=== PATIENT | male | born 1950 | race Caucasian/White ===

== ENCOUNTER 2022-09-23 18:19 | Emergency (ER) | payer OTHER ==
[~2022-09-23] VITALS: Ht 188 cm; Wt 86.2 kg
[~2022-09-23 18:19] MED LIST: BUSP5; CEPH500 PO; DIVA125EC; HYDACE5 PO; LEVSOD25; LOSA25; PARO20; SIMV5; [UNRECOGNIZED DRUG - REMARK]
[2022-09-23 19:12] LABS: BASOPHILS PERCENT AUTO 2 % (0-2); EOSINOPHILS PERCENT AUTO 7 % (0-6); Hematocrit 39.7 % (37.0-53.0); IMMATURE GRAN ABSOLUTE AUTO 0.02 K/mm3 (0.00-0.10); IMMATURE GRAN PERCENT AUTO 0 % (0-1); LYMPHOCYTES ABSOLUTE AUTO 2.41 K/mm3 (0.84-5.20); LYMPHOCYTES PERCENT AUTO 36 % (21-46); MONOCYTES ABSOLUTE AUTO 0.73 K/mm3 (0.16-1.47); MONOCYTES PERCENT AUTO 11 % (4-13); Mean Corpuscular HGB 34.5 pg (26.0-34.0); Mean Corpuscular HGB Conc 32.7 g/dL (31.5-36.5); Mean Corpuscular Volume 105 fL (80-100); Mean Platelet Volume 9.6 fL (9.1-12.4); NEUTROPHILS ABSOLUTE AUTO 2.99 K/mm3 (1.96-9.15); NEUTROPHILS PERCENT AUTO 44 % (41-73); Platelet Count 310 K/mm3 (150-400); RDW Coefficient Variation 15.2 % (11.7-14.2); RDW Standard Deviation 59.4 fL (35.1-46.3); Red Blood Cell Count 3.77 M/mm3 (4.30-5.90); White Blood Cell Count 6.75 K/mm3 (4.00-11.30)
[2022-09-23 19:27] LABS: Albumin/Globulin Ratio 1.2 (0.8-1.8); Bilirubin, Total 0.8 mg/dL (0.1-1.0); Bun/Creatinine Ratio 18.8 (12.0-20.0); Calcium, Blood 8.7 mg/dL (8.5-10.1); Creatinine, Blood 1.01 mg/dL (0.60-1.20); Globulin, Blood 3.3 g/dL (2.2-4.0); Potassium, Blood 4.2 mmol/L (3.5-5.5); Total Protein, Blood 7.3 g/dL (6.4-8.2)
== END 2022-09-23 21:36 | disposition home or self-care (01) ==
LOC: ER 18:19
PROVIDERS: Physician Assistant
DX: J44.9 Chronic obstructive pulmonary disease, unspecified (principal); Z88.5 Allergy status to narcotic agent; Z79.899 Other long term (current) drug therapy
CPT/HCPCS: 36415; 71046; 80053; 83880; 84484; 85025; 85379; 93005; 93010

== ENCOUNTER 2023-11-09 17:02 | Emergency (ER) | payer OTHER ==
[~2023-11-09] VITALS: Ht 190.5 cm; Wt 88.5 kg
[2023-11-09 17:28] LABS: BASOPHILS ABSOLUTE AUTO 0.09 K/mm3 (0.00-0.23); BASOPHILS PERCENT AUTO 1 % (0-2); EOSINOPHILS ABSOLUTE AUTO 0.62 K/mm3 (0.00-0.68); EOSINOPHILS PERCENT AUTO 9 % (0-6); Hematocrit 37.6 % (37.0-53.0); Hemoglobin 12.3 g/dL (13.5-17.5); IMMATURE GRAN ABSOLUTE AUTO 0.03 K/mm3 (0.00-0.10); IMMATURE GRAN PERCENT AUTO 0 % (0-1); LYMPHOCYTES ABSOLUTE AUTO 1.98 K/mm3 (0.84-5.20); LYMPHOCYTES PERCENT AUTO 28 % (21-46); MONOCYTES ABSOLUTE AUTO 0.61 K/mm3 (0.16-1.47); MONOCYTES PERCENT AUTO 9 % (4-13); Mean Corpuscular HGB 36.7 pg (26.0-34.0); Mean Corpuscular HGB Conc 32.7 g/dL (31.5-36.5); Mean Corpuscular Volume 112 fL (80-100); Mean Platelet Volume 9.2 fL (9.1-12.4); NEUTROPHILS ABSOLUTE AUTO 3.66 K/mm3 (1.96-9.15); NEUTROPHILS PERCENT AUTO 52 % (41-73); Platelet Count 311 K/mm3 (150-400); RDW Coefficient Variation 15.4 % (11.7-14.2); Red Blood Cell Count 3.35 M/mm3 (4.30-5.90); White Blood Cell Count 6.99 K/mm3 (4.00-11.30)
[2023-11-09 17:56] LABS: Albumin, Blood 3.8 g/dL (3.4-5.0); Albumin/Globulin Ratio 1.1 (0.8-1.8); Bilirubin, Total 1.4 mg/dL (0.1-1.0); Bun/Creatinine Ratio 18.6 (12.0-20.0); Calcium, Blood 9.1 mg/dL (8.5-10.1); Creatinine, Blood 0.91 mg/dL (0.60-1.20); Globulin, Blood 3.6 g/dL (2.2-4.0); Potassium, Blood 4.6 mmol/L (3.5-5.5); Total Protein, Blood 7.4 g/dL (6.4-8.2)
[2023-11-09] MEDS ORDERED: MethylPREDNISolone Sod Succ 125 MG Vial IV ONE (22:00)
[2023-11-09] MEDS ORDERED: Albuterol 2.5 MG/3 ML VIAL INH SCH (22:00)
[2023-11-09 23:25] LABS: Influenza A, PCR NEGATIVE (NEGATIVE); Influenza B, PCR NEGATIVE (NEGATIVE); Resp Syncytial Virus, PCR NEGATIVE (NEGATIVE); SARS-Cov-2 (COVID-19) PCR, MMC NEGATIVE (NEGATIVE)
[2023-11-09 23:30] VITALS: BP 126/65
[2023-11-09] MEDS ORDERED: AZIT250 PO (23:40)
[2023-11-09] MEDS ORDERED: Azithromycin 250 MG Tab PO ONE (23:40)
[2023-11-09] MEDS ORDERED: ALBU2.5V5 NEB (23:40)
[2023-11-09] MEDS ORDERED: METPRE4DP PO (23:40)
== END 2023-11-10 00:05 | disposition home or self-care (01) ==
LOC: ER 17:02
PROVIDERS: Emergency Medicine
DX: J44.1 Chronic obstructive pulmonary disease with (acute) exacerbation (principal); R09.02 Hypoxemia; Z87.891 Personal history of nicotine dependence; Z88.5 Allergy status to narcotic agent; Z79.899 Other long term (current) drug therapy
CPT/HCPCS: 0241U; 71045; 80053; 84484; 85025; 94644; 94664; A9270; J2930

== ENCOUNTER 2024-02-26 12:24 | Day surgery (SDC) | payer OTHER ==
[~2024-02-26] VITALS: Ht 190.5 cm; Wt 92.4 kg
[~2024-02-26 12:24] MED LIST changes: +ALBU2.5V5 NEB; +AZIT250 PO; +Balanced Salt Epinephrine Irrigation Solution 500 mL IR SCH; +Lidocaine HCl/Pf 1% 5 ML VIAL XX SCH; +METPRE4DP PO; +Moxifloxacin HCL 0.5 MG/0.1 ML 0.4MLSYR RIGHTEYE SCH; +NS 500 ML IV ONE; +PHENYLEPHRINE\\TROPICAMIDE\\TETRACAINE OPHTHALMIC DILATING SOLN RIGHTEYE PRN; +Povidone-Iodine 450 DROP/30 ML Solution RIGHTEYE SCH
[2024-02-26] MEDS ORDERED: DAPS100 (12:57)
[2024-02-26] MEDS ORDERED: VENL25 (13:00)
[2024-02-26] MEDS ORDERED: METO25ER (13:00)
[2024-02-26] MEDS ORDERED: LOPE2C (13:10)
[2024-02-26] MEDS ORDERED: CHLO25B (13:10)
[2024-02-26] MEDS ORDERED: NS 1,000 ML IV ONE (13:20)
[2024-02-26] MEDS ORDERED: Tetracaine HCl 0.5% Opth Soln 15 ml RIGHTEYE ONE (13:35)
[2024-02-26 14:09] VITALS: BP 116/62
--- NOTE | 2024-02-26 14:31 | NUR ---
02/26/24 1431 MYRIAM ANTOINE PT PLACED ON O2 ON PRIOR TO DC. INFORMED PT THAT WE HAD HIS O2 SET AT 5 L
== END 2024-02-26 14:30 | disposition home or self-care (01) ==
LOC: ORSCSDS 12:24
PROVIDERS: Student in an Organized Health Care Education/Training Program
PROC: 08RJ3JZ Replacement of Right Lens with Synthetic Substitute, Percutaneous Approach (ICD-10-PCS; principal; 2024-02-26 13:45)
DX: H25.813 Combined forms of age-related cataract, bilateral (principal); H52.201 Unspecified astigmatism, right eye; I10 Essential (primary) hypertension; J44.9 Chronic obstructive pulmonary disease, unspecified; I25.2 Old myocardial infarction; E11.9 Type 2 diabetes mellitus without complications; E03.9 Hypothyroidism, unspecified; Z99.81 Dependence on supplemental oxygen; D59.10 Autoimmune hemolytic anemia, unspecified; Z79.899 Other long term (current) drug therapy
CPT/HCPCS: 82947; J7040; V2632

== ENCOUNTER 2024-03-05 11:50 | Day surgery (SDC) | payer OTHER ==
[~2024-03-05] VITALS: Ht 190.5 cm; Wt 87.8 kg
[~2024-03-05 11:50] MED LIST changes: +CHLO25B; +DAPS100; +LOPE2C; +METO25ER; +Moxifloxacin HCL 0.5 MG/0.1 ML 0.4MLSYR LEFTEYE SCH; -Moxifloxacin HCL 0.5 MG/0.1 ML 0.4MLSYR RIGHTEYE SCH; +PHENYLEPHRINE\\TROPICAMIDE\\TETRACAINE OPHTHALMIC DILATING SOLN LEFTEYE PRN; -PHENYLEPHRINE\\TROPICAMIDE\\TETRACAINE OPHTHALMIC DILATING SOLN RIGHTEYE PRN; +Povidone-Iodine 450 DROP/30 ML Solution LEFTEYE SCH; -Povidone-Iodine 450 DROP/30 ML Solution RIGHTEYE SCH; +VENL25
--- NOTE | 2024-03-05 12:14 | NUR ---
03/05/24 1214 Maryann Carpenter AT 1208 PLEDGET AT 1209
[2024-03-05] MEDS ORDERED: NS 500 ML IV ONE (12:26)
[2024-03-05] MEDS ORDERED: Tetracaine HCl 0.5% Opth Soln 15 ml LEFTEYE ONE (12:42)
[2024-03-05] MEDS ORDERED: Midazolam HCl 1MG / ML 2ML Vial ONE (12:44)
[2024-03-05] MEDS ORDERED: FentaNYL Citrate 50 MCG/ML 2 ML Injection ONE (12:44)
[2024-03-05 13:13] VITALS: BP 111/88
== END 2024-03-05 13:25 | disposition home or self-care (01) ==
LOC: ORSCSDS 11:50
PROVIDERS: Student in an Organized Health Care Education/Training Program
PROC: 08RK3JZ Replacement of Left Lens with Synthetic Substitute, Percutaneous Approach (ICD-10-PCS; principal; 2024-03-05 13:00)
DX: E11.36 Type 2 diabetes mellitus with diabetic cataract (principal); H25.812 Combined forms of age-related cataract, left eye; H52.202 Unspecified astigmatism, left eye; Z96.1 Presence of intraocular lens; I10 Essential (primary) hypertension; I25.2 Old myocardial infarction; E78.00 Pure hypercholesterolemia, unspecified; I25.10 Atherosclerotic heart disease of native coronary artery without angina pectoris; J44.9 Chronic obstructive pulmonary disease, unspecified; E03.9 Hypothyroidism, unspecified; Z99.81 Dependence on supplemental oxygen; Z79.899 Other long term (current) drug therapy; Z87.891 Personal history of nicotine dependence
CPT/HCPCS: 82947; J2250; J3010; J7040; V2632

== ENCOUNTER 2025-03-07 17:09 | Inpatient (IN) | payer OTHER ==
[~2025-03-07] VITALS: Ht 188 cm; Wt 86.2 kg
[~2025-03-07 17:09] MED LIST changes: -Balanced Salt Epinephrine Irrigation Solution 500 mL IR SCH; -CHLO25B; +CHLO25B PO; -DAPS100; +DAPS100 PO; -LEVSOD25; +LEVSOD25 PO; -Lidocaine HCl/Pf 1% 5 ML VIAL XX SCH; -METO25ER; +METO25ER PO; -Moxifloxacin HCL 0.5 MG/0.1 ML 0.4MLSYR LEFTEYE SCH; -NS 500 ML IV ONE; -PHENYLEPHRINE\\TROPICAMIDE\\TETRACAINE OPHTHALMIC DILATING SOLN LEFTEYE PRN; -Povidone-Iodine 450 DROP/30 ML Solution LEFTEYE SCH; -VENL25; +VENL25 PO
[2025-03-07 17:40] LABS: BASOPHILS ABSOLUTE AUTO 0.04 K/mm3 (0.00-0.23); BASOPHILS PERCENT AUTO 1 % (0-2); EOSINOPHILS ABSOLUTE AUTO 0.02 K/mm3 (0.00-0.68); EOSINOPHILS PERCENT AUTO 0 % (0-6); Hematocrit 31.3 % (37.0-53.0); Hemoglobin 10.6 g/dL (13.5-17.5); IMMATURE GRAN ABSOLUTE AUTO 0.02 K/mm3 (0.00-0.10); IMMATURE GRAN PERCENT AUTO 0 % (0-1); LYMPHOCYTES ABSOLUTE AUTO 2.04 K/mm3 (0.84-5.20); LYMPHOCYTES PERCENT AUTO 26 % (21-46); MONOCYTES ABSOLUTE AUTO 0.77 K/mm3 (0.16-1.47); MONOCYTES PERCENT AUTO 10 % (4-13); Mean Corpuscular HGB Conc 33.9 g/dL (31.5-36.5); Mean Corpuscular Volume 100 fL (80-100); NEUTROPHILS ABSOLUTE AUTO 4.84 K/mm3 (1.96-9.15); NEUTROPHILS PERCENT AUTO 63 % (41-73); NRBC ABSOLUTE 0.00 K/mm3 (0.00-0.02); NRBC Auto 0.0 /100 WBC (0.0-0.2); Platelet Count 311 K/mm3 (150-400); RDW Coefficient Variation 15.0 % (11.7-14.2); RDW Standard Deviation 54.3 fL (35.1-46.3)
[2025-03-07 18:04] LABS: Alanine Aminotransfer (ALT/SGP 27.0 U/L (12-78); Albumin, Blood 4.2 g/dL (3.4-5.0); Albumin/Globulin Ratio 1.4 (0.8-1.8); Anion Gap 12.0 mmol/L (3-11); Aspartate Aminotrans (AST/SGOT 29.0 U/L (12-37); Bilirubin, Total 2.6 mg/dL (0.1-1.0); Blood Urea Nitrogen 15.0 mg/dL (8-24); CO2, Blood 28.0 mmol/L (21-32); Calcium, Blood 9.5 mg/dL (8.5-10.1); Chloride, Blood 95.0 mmol/L (98-108); Creatinine, Blood 0.96 mg/dL (0.60-1.20); Globulin, Blood 3.1 g/dL (2.2-4.0); Glucose, Blood 114.0 mg/dL (70-99); Potassium, Blood 3.0 mmol/L (3.5-5.5); Sodium, Blood 132.0 mmol/L (136-145); Total Protein, Blood 7.3 g/dL (6.4-8.2)
[2025-03-07 18:07] LABS: Magnesium, Blood 1.6 mg/dL (1.6-2.4)
[2025-03-07] MEDS ORDERED: Mag Sulfate 1 GM/D5% 100ML 100 ML IV ONE (18:15)
[2025-03-07 18:59] LABS: Influenza A, PCR NEGATIVE (NEGATIVE); Influenza B, PCR NEGATIVE (NEGATIVE); Resp Syncytial Virus, PCR NEGATIVE (NEGATIVE); SARS-Cov-2 (COVID-19) PCR, MMC NEGATIVE (NEGATIVE)
[2025-03-07 20:18] LABS: Source, Urine Clean Catch
[2025-03-07 20:25] LABS: Bilirubin, Urine Neg (Neg); Glucose Qualitative, Urine Neg (Neg); Ketones, Urine Neg (Neg); Leukocyte Esterase, Urine 1+ (Neg); Protein, Urine 1+ (Neg); Specific Gravity, Urine 1.010 (1.003-1.022); Urobilinogen, Urine 2+ (Normal)
[2025-03-07 20:33] LABS: Color, Urine Yellow (P-Yellow)
[2025-03-07 20:35] LABS: Red Blood Cells, Urine 0-2 /hpf (0-2)
[2025-03-07] MEDS ORDERED: CefTRIAXone Sodium 1,000 MG in NS 50 ML IV ONE (20:50)
[2025-03-07] MEDS ORDERED: Ondansetron HCl 2 MG / ML 2ML Vial IV PRN (22:10)
[2025-03-07 22:53] VITALS: BP 123/61
--- NOTE | 2025-03-07 22:55 | NUR ---
ADMISSION NOTE PT ARRIVED FROM ER. PT WAS AOX4, CALM AND COOPERATIVE. EXPLAINED CALL LIGHT TO PT, PT VERBALIZED UNDERSTANDING. THIS RN TO ASSUME CARE.
[2025-03-08] MEDS ORDERED: Albuterol 2.5 MG/3 ML VIAL INH PRN (03:55)
[2025-03-08 04:24] VITALS: BP 135/68
--- NOTE | 2025-03-08 06:20 | NUR ---
SHIFT SUMMARY PT HAS BEEN RESTING COMFORTABLY OVERNIGHT SINCE COMING FROM ER AT 2255. PT HERE FOR SEPSIS. PT HAS BEEN AOX4, CALM AND COOPERATIVE, AND ABLE TO MAKE NEEDS KNOWN. HE HAS BEEN ON 3LNC, W/ 2LNC BASELINE AT HOME. HE IS ON CONT PULSE OX, SATING 92-93%. PT HAS BEEN 1PA, DUE TO GEN WEAKNESS, AND HAS BEEN USING URINAL OVERNIGHT. PT HAS HAD NO COMPLAINTS OVERNIGHT. PT HAD UNEVENTFUL NIGHT.
[2025-03-08 06:40] LABS: BASOPHILS ABSOLUTE AUTO 0.05 K/mm3 (0.00-0.23); BASOPHILS PERCENT AUTO 1 % (0-2); EOSINOPHILS ABSOLUTE AUTO 0.10 K/mm3 (0.00-0.68); EOSINOPHILS PERCENT AUTO 2 % (0-6); Hematocrit 27.6 % (37.0-53.0); Hemoglobin 9.2 g/dL (13.5-17.5); IMMATURE GRAN ABSOLUTE AUTO 0.02 K/mm3 (0.00-0.10); IMMATURE GRAN PERCENT AUTO 0 % (0-1); LYMPHOCYTES ABSOLUTE AUTO 1.73 K/mm3 (0.84-5.20); LYMPHOCYTES PERCENT AUTO 28 % (21-46); MONOCYTES ABSOLUTE AUTO 0.71 K/mm3 (0.16-1.47); MONOCYTES PERCENT AUTO 12 % (4-13); Mean Corpuscular HGB Conc 33.3 g/dL (31.5-36.5); Mean Corpuscular Volume 102 fL (80-100); NEUTROPHILS ABSOLUTE AUTO 3.48 K/mm3 (1.96-9.15); NEUTROPHILS PERCENT AUTO 57 % (41-73); NRBC ABSOLUTE 0.00 K/mm3 (0.00-0.02); NRBC Auto 0.0 /100 WBC (0.0-0.2); Platelet Count 293 K/mm3 (150-400); RDW Coefficient Variation 15.2 % (11.7-14.2); RDW Standard Deviation 56.0 fL (35.1-46.3)
[2025-03-08 07:11] LABS: Alanine Aminotransfer (ALT/SGP 24.0 U/L (12-78); Albumin, Blood 3.6 g/dL (3.4-5.0); Albumin/Globulin Ratio 1.3 (0.8-1.8); Anion Gap 7.0 mmol/L (3-11); Aspartate Aminotrans (AST/SGOT 26.0 U/L (12-37); Bilirubin, Total 1.7 mg/dL (0.1-1.0); Blood Urea Nitrogen 13.0 mg/dL (8-24); CO2, Blood 30.0 mmol/L (21-32); Calcium, Blood 8.4 mg/dL (8.5-10.1); Chloride, Blood 101.0 mmol/L (98-108); Creatinine, Blood 0.92 mg/dL (0.60-1.20); Globulin, Blood 2.7 g/dL (2.2-4.0); Glucose, Blood 104.0 mg/dL (70-99); Magnesium, Blood 1.8 mg/dL (1.6-2.4); Potassium, Blood 3.2 mmol/L (3.5-5.5); Sodium, Blood 135.0 mmol/L (136-145); Thyroid Stimulating Hormone 0.257 uIU/mL (0.360-4.800); Total Protein, Blood 6.3 g/dL (6.4-8.2)
[2025-03-08 07:23] VITALS: BP 131/59
[2025-03-08] MEDS ORDERED: Polyethylene Glycol 3350 17 gm PO PRN (07:30)
[2025-03-08] MEDS ORDERED: Lactobacil 2-S.Thermo-Bifido 1 1 Cap PO SCH (09:00)
[2025-03-08 14:54] VITALS: BP 117/79
--- NOTE | 2025-03-08 18:00 | NUR ---
SHIFT SUMMARY PT AOX4, SBA TO THE BR. 3LNC, 2L AT BASELINE. NO ACUTE COMPLAINTS TODAY. HE CALLS AND MAKES HIS NEEDS KNOWN. DAUGHTER AT THE BS. POSSIBLE DC TOMORROW. REPOSITIONS SELF IN BED. CALL LIGHT WITHIN REACH, BED LOCKED AND IN THE LOWEST POSITION.
[2025-03-08 19:03] VITALS: BP 132/78
[2025-03-08] MEDS ORDERED: Docusate Sodium/Senna 1 Tab PO SCH (21:00)
[2025-03-08] MEDS ORDERED: CefTRIAXone Sodium 1,000 MG in NS 100 ML IV SCH (21:00)
--- NOTE | 2025-03-09 03:52 | NUR ---
SHIFT SUMMARY PATIENT IS ALERT AND ORIENTED. PATIENT HAS HAD NO ACUTE EVENTS THIS SHIFT. VITAL SIGNS REVIEWED. PATIENT HAS BEEN PLEASENT AND COOPERATIVE WITH CARE THIS SHIFT. PATIENT HAS BEEN A SBA TO BSC. PATIENT HAS HAD NO COMPLAINTS OF SOB, NAUSEA, PAIN OR VOMITTING THIS SHIFT. PATIENT HAS HAD A BM THIS SHIFT. PATIENT STILL ON 3L NC, 2L BASELINE. CALL LIGHT IN PLACE. BED IN LOCKED AND LOWEST POSITION.
[2025-03-09 04:05] VITALS: BP 129/64
[2025-03-09 06:54] LABS: Hematocrit 30.0 % (37.0-53.0); Hemoglobin 9.6 g/dL (13.5-17.5); Mean Corpuscular HGB Conc 32.0 g/dL (31.5-36.5); Mean Corpuscular Volume 103 fL (80-100); NRBC ABSOLUTE 0.00 K/mm3 (0.00-0.02); NRBC Auto 0.0 /100 WBC (0.0-0.2); Platelet Count 288 K/mm3 (150-400); RDW Coefficient Variation 15.6 % (11.7-14.2); RDW Standard Deviation 58.8 fL (35.1-46.3)
[2025-03-09 07:12] VITALS: BP 134/80
[2025-03-09 07:18] LABS: Magnesium, Blood 1.6 mg/dL (1.6-2.4); Total Iron Binding Capacity 175 ug/dL (250-450)
[2025-03-09 07:42] LABS: Albumin, Blood 3.7 g/dL (3.4-5.0); Anion Gap 7 mmol/L (3-11); Blood Urea Nitrogen 14 mg/dL (8-24); CO2, Blood 31 mmol/L (21-32); Calcium, Blood 9.0 mg/dL (8.5-10.1); Chloride, Blood 99 mmol/L (98-108); Creatinine, Blood 0.91 mg/dL (0.60-1.20); Ferritin, Serum 441 ng/mL (26-388); Glucose, Blood 105 mg/dL (70-99); Phosphorus, Blood 3.7 mg/dL (2.5-4.9); Potassium, Blood 3.2 mmol/L (3.5-5.5); Sodium, Blood 134 mmol/L (136-145)
[2025-03-09] MEDS ORDERED: Multivitamins 1 Tab PO SCH (11:00)
[2025-03-09] MEDS ORDERED: ATOR40TA PO (12:51)
[2025-03-09] MEDS ORDERED: [UNRECOGNIZED DRUG - CODE] PO (12:53)
[2025-03-09] MEDS ORDERED: Vitamin D1000 UNI1 PO (12:54)
[2025-03-09 15:33] VITALS: BP 142/70
--- NOTE | 2025-03-09 16:19 | NUR ---
SHIFT SUMMARY PT AOX4, COOPERATIVE, ABLE TO MAKE NEEDS KNOWN. PT IS AMUBLAORY IN ROOM, SBA DUE TO LINE MANAGEMENT. MED REC COMPLETE. AWAITING CULTURES I BELIEVE AND POSSIBLE DC TOMORROW. ON 2L O2, CURRENTLY. NO COMPLAINTS OF PAIN THIS SHIFT. BED IN LOWEST POSITION, CALL LIGHT WITHIN REACH.
--- NOTE | 2025-03-09 16:45 | NUR ---
Upon receiving a request for spiritual care to visit the patient because of his apparent struggles with grief, I visited the patient. He immediately should what he was working. It appeared to be a questionaire from a grief support group/class through [employer]. We talk about his answers, the loss of his and the "beyond despair" feelings that he has been suffering with. We explored his grief process, topics of meaning and purpose and his spiritual beliefs. While we were deep into the conversation, a friend of the patietn arrived and I stepped out to allow them time to visit. I will pick the conversation next visit.
[2025-03-09 20:12] VITALS: BP 160/79
--- NOTE | 2025-03-10 04:08 | NUR ---
SHIFT SUMMARY PATIENT IS ALERT AND ORIENTED. PATIENT HAS HAD NO ACUTE EVENTS THIS SHIFT. VITAL SIGNS REVIEWED. PATIENT HAS NO COMPLAINTS OF SOB, NAUSEA, VOMITTING OR PAIN THIS SHIFT. PATIENT WAS ABLE TO TITRATE OXYGEN DOWN TO PATIENT BASELINE WHILE MAINTAINING ABOVE 95 [address]CENT. CALL LIGHT IN PLACE. BED IN LOCKED AND LOWEST POSITION.
[2025-03-10 05:17] VITALS: BP 159/81
[2025-03-10 07:12] VITALS: BP 143/78
[2025-03-10] MEDS ORDERED: CEFD300 PO (12:40)
--- NOTE | 2025-03-10 14:07 | NUR ---
DISCHARGE PT AOX4, COOPERATIVE, ABLE TO MAKE NEEDS KNOWN. PT ON 2L O2 DURING ADMISSION. FAMILY MEMBER HERE TO SOUND TECHNICIAN PT. TRANSPORTED VIA WC BY [facility] DOWN TO PT ENTRANCE. THIS RN WENT OVER DC PAPERWORK WITH PT. IV DC'D BY GENERAL SURGEON WITHOUT EVENTS. BELONGINGS WERE TAKEN WITH PT EXCEPT PHONE CREAM SEPARATOR OPERATOR LATER FOUND BY CARLY.
== END 2025-03-10 13:45 | disposition home health service (06) | DRG 872 ==
LOC: ER 17:09 → MEDS 17:10
PROVIDERS: Emergency Medicine; Internal Medicine; Student in an Organized Health Care Education/Training Program; ADMIT Student in an Organized Health Care Education/Training Program
DX: A41.9 Sepsis, unspecified organism (principal); N39.0 Urinary tract infection, site not specified; J96.11 Chronic respiratory failure with hypoxia; D64.9 Anemia, unspecified; R13.10 Dysphagia, unspecified; E03.9 Hypothyroidism, unspecified; E87.6 Hypokalemia; I25.10 Atherosclerotic heart disease of native coronary artery without angina pectoris; I10 Essential (primary) hypertension; J44.9 Chronic obstructive pulmonary disease, unspecified; K21.9 Gastro-esophageal reflux disease without esophagitis; R65.20 Severe sepsis without septic shock; R74.02 Elevation of levels of lactic acid dehydrogenase [LDH]; I25.2 Old myocardial infarction; Z99.81 Dependence on supplemental oxygen; Z63.4 Disappearance and death of family member; Z88.6 Allergy status to analgesic agent; Z88.5 Allergy status to narcotic agent; Z88.8 Allergy status to other drugs, medicaments and biological substances; Z79.890 Hormone replacement therapy; Z99.3 Dependence on wheelchair; Z87.891 Personal history of nicotine dependence
CPT/HCPCS: 0241U; 36415; 51798; 71045; 80053; 80069; 81001; 82607; 82728; 82746; 83540; 83550; 83605; 83690; 83735; 83880; 84436; 84443; 84484; 85025; 85027; 87086; 92610; 93005; 93010; 94762; 96361; 96365; 96375; 97110; 97116; 97161; 97530; 99285-25; A9270; G0378; J0696; J3475; J7120